=== PATIENT | female | born 1945 | race Caucasian/White ===

== ENCOUNTER 2017-08-12 10:59 | Outpatient (CLI) | payer MEDICARE, OTHER ==
[~2017-08-12] VITALS: Ht 139.7 cm; Wt 44.5 kg
[2017-08-12 11:08] VITALS: BP 155/72; PULSE 63; RESP 18; Ht 139.7 cm; Wt 44.5 kg
[2017-08-12] MEDS ORDERED: IRON15TA3 PO (11:21)
[2017-08-12] MEDS ORDERED: ASCO500C7 PO (11:21)
--- NOTE | 2017-08-12 12:52 | CONS ---
DATE OF CONSULTATION: 08[facility]12/[facility] IN[facility]IAL OUTPATIENT CONSULTATION NOTE PLACE OF SERVICE: [facility]. REFERRING PHYSICIAN: Jonnie Aguero MD Dear Dr. Aguero: Thank you very much for allowing us to participate in the care of this very pleasant lady and her wonderful family. REASON FOR CONSULTATION: Hepatic cysts. HISTORY OF PRESENT ILLNESS: The patient is a very pleasant 72-year-old lady with known comorbidity of hepatitis C cirrhosis, which likely started after she received a blood transfusion when she was 18 years old (? -related) and who had evidence of cirrhosis 15 years ago during an open cholecystectomy that she underwent in [place] for acute cholecystitis, per her own report, who has been found to have an area of the right lobe of her liver with dilated intrahepatic biliary system. This was best described on her CT scan of abdomen and pelvis with contrast that was done on 06/09/2017 that showed focal abnormal cystic dilatation of the intrahepatic biliary tree and the anterior right hepatic lobe adjacent to the gallbladder fossa. The largest area of the cystic dilatation measured up to 2.6 cm in size. There was also evidence of borderline splenomegaly measuring at 12.9 cm. Perisplenic venous collateralization was associated with left-sided splenorenal shunt. Bilirubin lesion was not excluded. The common bile duct measured 8 mm in caliber. Colonic diverticulosis was also noted. An MRI of the liver was recommended. She also has had other exams, such as ultrasound of the abdomen, on 06/04/2017 that showed a bilobed cystic lesion with irregular thickened wall at the cholecystectomy bed. She was kindly referred to us for further evaluation and management of this issue. I met the patient today, and she was accompanied by her grandson, who also served as a partial bight maker during the visit. The patient herself reports no major abdominal pain issues. No changes in her appetite. No changes in her bowel or bladder habits, including no major issues with constipation or diarrhea. No blood in the stool or urine. No blood in previous emesis and no changes in her weight. Overall, life has been fairly normal and without significant difficulties for the patient. She has had epistaxis that resulted in hospitalization in 05/2017, and her platelet count consistently is in the 50s. She has known hepatitis C, which has not been treated as best as I can gather. Previous tumor marker checks were also fairly unremarkable. COMORBIDITIES: 1. Hepatitis C infection, known at least since earlier this decade and known liver cirrhosis which was initially discovered around early 1999, when the patient underwent an open cholecystectomy for acute cholecystitis in [place]. I believe the hepatitis C infection was also diagnosed back then as well. She has had no treatment for hepatitis C as best as I can tell. 2. Cirrhosis, which has been longstanding. There is history of blood transfusion when the patient was 18 years of age, and this may have been the time when she acquired hepatitis C. 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 3. Anemia. 4. Mild hypoalbuminemia at 3.6 on 05/29/2017. 5. History of diverticulosis. 6. Vitamin D deficiency. 7. Renal cyst. 8. Above-mentioned history of epistaxis. 9. Blood transfusion in 1962. 10. Status post open cholecystectomy in [place] in early . 11. Status post right inguinal hernia repair. ALLERGIES: ADHESIVE TAPE WITH UNKNOWN REACTION. HOME MEDICATIONS: Carefully reviewed and recorded in the electronic record system. SOCIAL HISTORY: The patient was born in [facility]. She has 2 children. She is and currently unemployed. She has never smoked and does not report any drinking. No exposure to intravenous drugs in the past. FAMILY HISTORY: There is no major mention of medical, surgical or oncologic problems, other than lung cancer in the patient's mother. No history of liver disease in the past. REVIEW OF SYSTEMS: Other than the above-mentioned, there are no other pertinent positives or pertinent negatives in a complete 14-point review of systems. There is mention of frequency of urination as well as bloating and some indigestion, but no other major findings. PHYSICAL EXAMINATION GENERAL: The patient appears to be a very pleasant lady of descent, appearing stated age, sitting in a chair comfortably and in no acute distress. Her BMI is 22.8. VITAL SIGNS: Normal with the exception of blood pressure 155/72. HEENT: Head is normocephalic and atraumatic. Her extraocular muscles and hearing are grossly intact bilaterally and symmetrically. Her sclerae are nonicteric. Her oral cavity is clear, and her oral mucosa appear to be pink and moist. She has no teeth of her own left. NECK: Supple. There is no lymphadenopathy or JVD. There is no submental, submandibular or supraclavicular lymphadenopathy. CHEST: Rises symmetrically with each breath, and she is breathing comfortably. There are no audible wheezes, rales or rhonchi on the gross exam. Her carotid pulses are palpable bilaterally and symmetrically in her neck. HEART: Radial pulse is palpable on her left wrist. EXTREMITIES: Lower extremities contain no pitting edema around the ankles bilaterally and symmetrically. ABDOMEN: Soft, nontender and nondistended. There is a well-healed midline incision corresponding to the patient's cholecystectomy 15 years ago, and she has no evidence of erythema, edema, discharge or hernia from this incision site. There is no evidence of organomegaly, caput medusae, engorged subcutaneous veins or ascites. There are no peritoneal signs or guarding. SKIN: Appears to be pink and feels warm to touch. NEUROLOGIC: She is awake, alert and follows commands appropriately. LABORATORY VALUES: Around 05/2017, platelet count 76, albumin 3.6, total bilirubin 1.4, alkaline phosphatase 127, AST 91, ALT 51. INR 1.3. H. pylori test was negative. Hepatitis C quantitative analysis was positive for 290,000 International units per mL. Her blood type is B positive. HIV test was negative. Most recent tumor markers were still pending at the time of this dictation. IMAGING: Pertinent findings on available images were reviewed above. Note that I personally reviewed all of the available images, and I agree in general with their overall reported findings. IMPRESSION AND PLAN: A very pleasant but unfortunate 72-year-old lady with known hepatitis C virus infection that likely happened in the 1960s from a blood transfusion that she received at that time and otherwise asymptomatic presence of chronic swelling that is associated with this process leading to cirrhosis and now finding of intrahepatic biliary dilatation which appears to be focal and in association with gallbladder fossa. The appearance of this area is somewhat nondescript, and there is no easy way of deciding whether there is an underlying malignancy in the area that is involved. Note that the most recent tumor markers are still pending, but I did see one mention of a normal alpha fetoprotein in the recent past in review of the chart, which is composed of more than 100 pages of small font-type information, which the patient and your office and other physicians have kindly provided us with. My initial impression of this process is that of a probable benign process, possibly related to complications from her gallbladder resection about 15 years ago. Of less likely, but certainly more problematic potential, would be a malignant process that is causing the changes that we are seeing on images. As best as I can gather, these images are found incidentally, and they are not associated with major worrisome symptoms, including no worrisome weight loss that is unintentional, issues with significant malnutrition outside of what we see in that cirrhosis and other obvious signs of a hypermetabolic process. I do believe that there is value in terms of studying this area further, which can be done with MRI with E[facility] along with MRCP, to get a better understanding of the patient's internal anatomy for the liver and also help us plan further interventions, such as ERCP, if they are indicated. The question of operative intervention is essentially answered already by the patient's cirrhotic state which is complicated by sinistral portal hypertension , which is unacceptable risk for the patient to have any kind of operative intervention at this time, in my opinion. She certainly cannot tolerate any liver resection. Her MELD score of 11 is too low for a transplant, and if she is proven to have a malignant process causing the findings that we have on the images, she would most likely not be eligible for a transplant at that time. Therefore, there are no surgical interventions that are indicated at this time. I explained all of the above to the patient and her grandson and answered all of their questions to the best of my ability. I believe that the patient and family understood and agreed with the plan. With the above assessments, I have recommend the followin. Liver dedicated MRI, possibly with Eovist as well as MRCP. 2. Multidisciplinary Tumor Board presentation. 3. Obtain the most recent tumor board markers. 4. Continue surveillance for her hepatitis C and consideration for treatment of hepatitis C once above workup hopefully demonstrates lack obvious evidence of malignancy. 5. Follow up with us early to mid-August for further discussion of the overall recommendations after the MRI and the tumor board meeting have taken place. 6. Possible need for gastroenterology consultation after above is done. Thank you again for allowing us to participate in the care of this very pleasant lady and her wonderful family. If there are any questions, please feel free to contact me at [phone]. NATURE PRESENTING PROBLEM: High risk. COMPLEXITY OF DECISION MAKIN: High complexity. Dictated By: ENE MOSHER/ANASTACIO Conf#: [id number] DID#: [id number] CC: Jonnie Aguero;*EndCC* MTDD
== END 2017-08-12 16:41 | disposition home or self-care (01) ==
LOC: HPC 10:59
PROVIDERS: ATTEND Transplant Surgery
DX: B19.20 Unspecified viral hepatitis C without hepatic coma (principal); K74.60 Unspecified cirrhosis of liver; D64.9 Anemia, unspecified; E88.09 Other disorders of plasma-protein metabolism, not elsewhere classified; E55.9 Vitamin D deficiency, unspecified
CPT/HCPCS: G0463